=== PATIENT | female | born 1975 ===

== ENCOUNTER 2020-12-16 16:46 | Emergency (ER) | payer SELFPAY ==
[~2020-12-16] VITALS: Ht 157.5 cm; Wt 63.5 kg
[2020-12-16 17:34] VITALS: BP 131/78
[2020-12-16] MEDS ORDERED: traMADol HCL 50 MG TAB PO ONE (19:30)
== END 2020-12-16 21:48 | disposition home or self-care (01) ==
LOC: ER 16:46
DX: G43.909 Migraine, unspecified, not intractable, without status migrainosus (principal)
CPT/HCPCS: 70450